=== PATIENT | female | born 1955 | race Caucasian/White ===

== ENCOUNTER 2018-08-22 09:29 | Inpatient (IN) ==
[2018-08-22] MEDS ORDERED: IOPAMIDOL 100 ML BOTTLE IV ONE (09:30)
[2018-08-22] MEDS ORDERED: VANCOMYCIN 1,000 MG in 0.9 % SODIUM CHLORIDE 250 ML IV ONE (10:08)
--- NOTE | 2018-08-22 10:12 | Emergency Department Note ---
Skin/Abscess/FB HPI - General Chief complaint: Skin/Abscess/Foreign Body Stated complaint: Redness to forehead Time Seen by Provider: 08/22/18 09:54 Source: patient Mode of arrival: ambulatory Limitations: no limitations - History of Present Illness HPI Narrative: 62-year-old female presents with increasing redness and tenderness to the forehead and down to the left eye. Patient states on she woke up with some pain behind her left ears. There is no rash or lesions. On Tuesday night Tuesday morning she noticed some redness to her forehead. Since then the redness has gotten worse and is very tender. Yesterday she went to [facility] and was seen by Dr. Reynolds. They gave her a gram of Rocephin and put her on Keflex 4 times daily. States she has been taking the Keflex as directed. However she woke up this morning and the redness and swelling is worse and now she has redness and swelling around her left eye as well. Positive chills, unknown fever. States last night she woke up in a pool of sweat. States the vision in her left eye is slightly blurry this morning. That is new. No ear drainage however her ears externally are very tender to palpation. Her ears also appear a little bit red according to patient. Back on she had some neck pain and stiffness which she thought was from driving in the car. That seems to have proved but now she has all this redness and swelling to her forehead and left eye. No recent cough or cold symptoms. No sinus drainage or postnasal drip. - Related Data Home Medications Medication Instructions Recorded Confirmed Losartan [Cozaar] 0 mg PO DAILY 03/29/16 08/22/18 Sertraline [Zoloft] 0 mg PO DAILY 03/29/16 08/22/18 atorvastatin 10 mg tablet 10 mg PO QDAY 08/21/18 08/22/18 Previous Rx's Medication Instructions Recorded cephalexin 500 mg capsule 500 mg PO QID 10 Days #40 cap 08/21/18 ondansetron HCl 8 mg tablet 8 mg PO Q8H PRN #10 tab 08/21/18 Allergies Allergy/AdvReac Type Severity Reaction Status Date / Time No Known Drug Allergies Allergy Unverified 08/21/18 10:19 Review of Systems All systems ED: reviewed and negative except as stated. Past Medical History - Past Medical History [facility] Narrative: Medical History (Last Reviewed 08/21/18 @ 13:59 by Hollie Reynolds DO) Ankle sprain and strain (Acute) Medical history: Reports: hyperlipidemia, hypertension - Social History smoking status: Never smoker Alcohol use: Reports: None Drug use: Reports: none Physical Exam Limitations: no limitations General appearance: alert, in no apparent distress Head: other (Center of the forehead and worse in the left forehead with significant redness and swelling that is tender to palpation. Cap refill immediate. Redness to the left lower and upper eyelid however the upper eyelid is worse. Please see visual acuity.) Eye: Present: PERRL, EOMI, periorbital tenderness (To left eye). Absent: conjunctival injection, nystagmus ENT: normal oropharynx, mucous membranes moist, other (External ears bilaterally with redness and mild edema. The canals with mild injection. TMs are pearly garcía with positive light reflex) Neck: Present: normal inspection, trachea midline, lymphadenopathy (Positive cervical and submental adenopathy). Absent: tenderness Chest: Present: symmetric chest wall rise Respiratory: Present: normal lung sounds bilaterally. Absent: respiratory distress, rales/crackles, accessory muscle use Cardiovascular: Present: regular rate, normal heart sounds Neurological: Present: alert, oriented X3 Psychiatric: Present: normal affect, normal mood Skin: Present: warm, dry, intact, normal color, erythema (Please see had an ENT assessment) Course Course Narrative: At 1130 I did speak with ENT production support specialist, Dr. Campbell. He suggested we start some Unasyn and contact ophthalmology. We do have a call into Dr. Molina he will be in to see the patient. @1205 Dr. Molina here examining pt. discussed with Dr. Molina. He feels that her eyesight and eyes themselves are okay that this is localized tissue swelling and cellulitis to the head and around the eye but not primarily coming from a periorbital cellulitis. He does not see any actual eye abnormalities. Please see Dr. Molina's note. At 1400 I did speak with Dr. Baumann with infectious disease. He would like to come see the patient but will not be here for a few hours due to being busy in the office. He would suggest that we start the patient on some vancomycin and Zosyn. Also suggest that we talk to the hospitalist about admit as long as we have ophthalmology to consult as needed. Dr. Molina did say he would see the patient as needed At 1410 I did speak with the hospitalist, Dr. Sterling who is going to come evaluate the patient. Vital Signs Temperature 98.8 F 08/22/18 09:30 Pulse Rate 75 08/22/18 09:30 Respiratory Rate 18 08/22/18 09:30 Blood Pressure 112/67 08/22/18 09:30 Pulse Oximetry (%) 95 08/22/18 09:30 Temperature 98.8 F 08/22/18 14:42 Pulse Rate 64 08/22/18 14:42 Respiratory Rate 20 08/22/18 14:42 Blood Pressure 112/67 08/22/18 14:42 Pulse Oximetry (%) 99 08/22/18 14:42 Skin/Abscess/Foreign Body - Lab Data Lab results reviewed: Yes I reviewed the patient's lab results. Result diagrams: 08/22/18 10:32 08/22/18 10:32 Lab Results 08/22/18 08/22/18 08/22/18 Range/Units 10:32 10:32 10:32 WBC 9.1 (4.5-11.0) K/mcL RBC 4.14 (4.00-5.20) M/mcL Hgb 11.9 L (12.0-15.0) g/dL Hct 35.7 L (36.0-48.0) % POC Hct 36.0 (36.0-48.0) % MCV 86.1 (80.0-100.0) fL MCH 28.7 (26.0-34.0) pg MCHC 33.4 (31.0-36.0) g/dL RDW 13.5 (11.5-14.5) % Plt Count 281 (140-440) K/mcL MPV 7.7 (7.4-10.4) fL Gran % 80.2 H (38.0-78.0) % Lymph % (Auto) 12.2 L (15.5-49.0) % [place] % (Auto) 6.3 (1.0-12.0) % Eos % (Auto) 1.1 (0.0-7.0) % Baso % (Auto) 0.2 (0.0-2.0) % Gran # 7.3 (1.8-8.0) K/mcL Lymph # (Auto) 1.1 L (1.5-4.8) K/mcL [place] # (Auto) 0.6 (0.1-0.9) K/mcL Eos # (Auto) 0.1 (0.0-0.7) K/mcL Baso # (Auto) 0 (0.0-0.3) K/mcL VBG Lactic Acid (0.5-2.0) mmol/L POC Sodium 135 (133-145) mmol/L Sodium 134 (133-145) mmol/L POC Potassium 3.4 (3.3-5.1) mmol/L Potassium 3.6 (3.3-5.1) mmol/L POC Chloride 96 (96-108) mmol/L Chloride 94 L (96-108) mmol/L Carbon Dioxide 25 (22-30) mmol/L POC Total CO2 26 (22-30) mmol/L Anion Gap 15.0 (8-16) POC BUN 13 (8-23) mg/dl BUN 13 (8-23) mg/dl Creatinine 1.0 (0.6-1.1) mg/dl POC Creatinine 1.0 (0.6-1.1) mg/dl GFR Calculation 61 Glucose 143 H (70-105) mg/dL POC Glucose 140 H (70-105) mg/dL Calcium 9.2 (8.6-10.4) mg/dl POC WB Ioniz Calcium 1.13 L (1.16-1.32) mmol/L Total Bilirubin 0.5 (0.0-1.0) mg/dL AST 21 (0-37) U/l ALT 20 (0-40) U/l Alkaline Phosphatase 109 (39-117) U/L C-Reactive Protein (0.0-0.8) mg/dl Total Protein 7.4 (5.9-8.4) gm/dL Albumin 3.9 (3.2-5.2) gm/dL Globulin 3.5 (2.2-3.7) gm/dL Albumin/Globulin Ratio 1.1 (1.0-2.3) 11/13/18 11/13/18 Range/Units 10:32 11:22 WBC (4.5-11.0) K/mcL RBC (4.00-5.20) M/mcL Hgb (12.0-15.0) g/dL Hct (36.0-48.0) % POC Hct (36.0-48.0) % MCV (80.0-100.0) fL MCH (26.0-34.0) pg MCHC (31.0-36.0) g/dL RDW (11.5-14.5) % Plt Count (140-440) K/mcL MPV (7.4-10.4) fL Gran % (38.0-78.0) % Lymph % (Auto) (15.5-49.0) % [place] % (Auto) (1.0-12.0) % Eos % (Auto) (0.0-7.0) % Baso % (Auto) (0.0-2.0) % Gran # (1.8-8.0) K/mcL Lymph # (Auto) (1.5-4.8) K/mcL [place] # (Auto) (0.1-0.9) K/mcL Eos # (Auto) (0.0-0.7) K/mcL Baso # (Auto) (0.0-0.3) K/mcL VBG Lactic Acid 1.1 (0.5-2.0) mmol/L POC Sodium (133-145) mmol/L Sodium (133-145) mmol/L POC Potassium (3.3-5.1) mmol/L Potassium (3.3-5.1) mmol/L POC Chloride (96-108) mmol/L Chloride (96-108) mmol/L Carbon Dioxide (22-30) mmol/L POC Total CO2 (22-30) mmol/L Anion Gap (8-16) POC BUN (8-23) mg/dl BUN (8-23) mg/dl Creatinine (0.6-1.1) mg/dl POC Creatinine (0.6-1.1) mg/dl GFR Calculation Glucose (70-105) mg/dL POC Glucose (70-105) mg/dL Calcium (8.6-10.4) mg/dl POC WB Ioniz Calcium (1.16-1.32) mmol/L Total Bilirubin (0.0-1.0) mg/dL AST (0-37) U/l ALT (0-40) U/l Alkaline Phosphatase (39-117) U/L C-Reactive Protein 20.6 H (0.0-0.8) mg/dl Total Protein (5.9-8.4) gm/dL Albumin (3.2-5.2) gm/dL Globulin (2.2-3.7) gm/dL Albumin/Globulin Ratio (1.0-2.3) - Radiology Data Radiology results reviewed: Yes I reviewed the patient's radiology results. Disposition Pt seen by MANAGER UNION/PA only: No Clinical Impression: Cellulitis, face Disposition: Xfer As Inpt ([facility]) Condition: Fair Instructions: Cellulitis (ED) Referrals: Elaine Vieyra MD [Primary Care Provider] - Erick Molina MD [Physician] - Macho Baumann MD [Physician] - Michell Campbell DO [Physician] - Time of Disposition: 15:06
[2018-08-22] MEDS ORDERED: diphenhydrAMINE 25 MG CAPSULE PO ONE (10:42)
--- NOTE | 2018-08-22 11:14 | Cat Scan Report ---
CLINICAL INFORMATION: Periorbital cellulitis TECHNIQUE: Axial images through the facial bones. 70 mL contrast material injected. Sagittal and coronally reformatted images COMPARISON: None. FINDINGS: There is preseptal soft tissue swelling consistent with bilateral periorbital cellulitis. No discrete fluid collection or solid mass. No postseptal abnormality. The globes appear normal bilaterally. No intraorbital abnormality. Extraocular musculature is normal. Intraorbital fat is normal. Frontal, ethmoid, maxillary sinuses are negative. There is no bone destruction. No evidence for sinusitis. Nasal bones are negative. Maxilla is negative. Landscape Contractor spaces are negative bilaterally. Submandibular glands and parotid glands are negative. No pathologic cervical lymphadenopathy. No intracranial abnormality. No epidural fluid. No intracranial enhancement. IMPRESSION: 1. Periorbital, preseptal cellulitis 2. No focal abscess. No postseptal abnormality. The globes and orbits appear normal 3. Negative paranasal sinuses. Interpreted and Authenticated by: Darwin Olivo 08/22/18
[2018-08-22 11:59] LABS: Basophils # (Auto) 0 K/mcL (0.0-0.3); Basophils % (Auto) 0.2 % (0.0-2.0); Eosinophils # (Auto) 0.1 K/mcL (0.0-0.7); Eosinophils % (Auto) 1.1 % (0.0-7.0); Granulocytes % (Auto) 80.2 % (38.0-78.0); Lymphocytes # (Auto) 1.1 K/mcL (1.5-4.8); Lymphocytes % (Auto) 12.2 % (15.5-49.0); Mean Cell Volume 86.1 fL (80.0-100.0); Mean Corpuscular HGB Conc 33.4 g/dL (31.0-36.0); Mean Corpuscular Hemoglobin 28.7 pg (26.0-34.0); Monocytes # (Auto) 0.6 K/mcL (0.1-0.9); Monocytes % (Auto) 6.3 % (1.0-12.0); Platelet Count 281 K/mcL (140-440); RBC 4.14 M/mcL (4.00-5.20); Red Cell Distribution Width 13.5 % (11.5-14.5)
[2018-08-22 12:07] LABS: ALT/SGPT 20 U/l (0-40); Albumin 3.9 gm/dL (3.2-5.2); Albumin/Globulin Ratio 1.1 (1.0-2.3); Alkaline Phosphatase 109 U/L (39-117); Blood Urea Nitrogen 13 mg/dl (8-23)
--- NOTE | 2018-08-22 14:51 | Internal Med History&Physical ---
Medical - H&P: HPI Patient information: Note initiated : 08/22/18 at 2:40 pm Service Date, if different from initiated Date: [] Patient: Tamiko Joyce a 62 y/o F admitted on for Redness to forehead. Chief Complaint: [] History of present illness: Ms. Joyce is a 62 year old F who presents the ER with facial redness and swelling and tenderness. Patient states on she noticed she had a 6 neck was a little bit sore and stiff the same to continue through Tuesday. And then on Tuesday she started to feel worse started to develop redness on her forehead and she felt feverish and chilled. On Tuesday her redness of her forehead started to expand and become more swollen and tender to the touch and extended to her left ear and a small portion of her left cheek as well. Her neck stiffness has improved. On Tuesday she went to urgent care clinic and received an IM injection of Rocephin was given a prescription for Keflex she went home and took several doses of her Keflex at night the next day her swelling appeared to be worse and that it involved the left eyelid with some associated blurry vision. And thus she went to the ER. She denies any trauma scratches or bug bites that she is aware of. No hearing loss, no ear drainage, no sinus drainage pressure. No oral lesions. There is no pruritus. No recent illnesses. She did have an episode of nausea and vomiting A CT of the head was done which was concerning for periorbital cellulitis. ENT Dr. Campbell was contacted from the ER who recommended ophthalmology evaluation. Dr. Molina acid plant helper, evaluated the patient and did not feel it was a periorbital cellulitis and that orbital exam was unremarkable and the eye itself was unaffected. Case was also discussed with Dr. Baumann with infectious disease specialist recommended IV Vanco and Zosyn. Per the PA the tympanic membranes look clear. Review of Systems: Positive for facial redness and swelling and tenderness, fevers, chills, nausea , vomiting. denies headache/fever/chills/chest or abdominal pain/cough/dyspnea/ diarrhea. Remaining 10 point review of systems reviewed negative Medical - H&P: PMH Medical history: Medical History (Last Reviewed 08/21/18 @ 13:59 by Hollie Reynolds DO) Hypertension Hyperlipidemia Depression Surgical history: Cholecystectomy Family history Mother had diabetes and stroke Father had CVA Social history: patient quit smoking 15 years ago drinks alcohol rarely lives at home with her Medical - H&P: Meds Home Medications Medication Instructions Recorded Confirmed Type Losartan [Cozaar] 0 mg PO DAILY 03/29/16 08/22/18 History Sertraline [Zoloft] 0 mg PO DAILY 03/29/16 08/22/18 History atorvastatin 10 mg tablet 10 mg PO QDAY 08/21/18 08/22/18 History cephalexin 500 mg capsule 500 mg PO QID 10 Days #40 cap 08/21/18 08/22/18 Rx ondansetron HCl 8 mg tablet 8 mg PO Q8H PRN #10 tab 08/21/18 08/22/18 Rx Allergies Allergy/AdvReac Type Severity Reaction Status Date / Time No Known Drug Allergies Allergy Unverified 08/21/18 10:19 Medical - H&P: Exam - Constitutional Vitals: Temp Pulse Resp BP Pulse Ox 98.8 F 64 20 99/57 99 08/22/18 14:37 08/22/18 14:37 08/22/18 14:37 08/22/18 14:37 08/22/18 14:37 Exam: General: Alert, Awake, No acute Distress HEENT: Homogenous erythema over the forehead with swelling of tissue and tenderness to palpation, erythema over the left eyelid a several centimeter circular area over the left cheek as well as erythema and tenderness to the left ear specifically the helix and a auricular tubercle, lobule of auricle unaffected, no pain on pulling down on the lobule. EOMI, pupils equal round reactive to light, CV: RRR, No murmurs, normal s1/s2 Pulm: Clear b/l, no wheezing/rhonchi/rales Abd: soft, nontender, +BS x4 Ext: no clubbing/cyanosis/edema Neuro: Alert, no focal deficits, moves all extremities Skin: warm/dry Medical - H&P: Reslt - Labs CBC & Chem 7: 08/22/18 10:32 08/22/18 10:32 Labs: Short CBC 08/22/18 Range/Units 10:32 WBC 9.1 (4.5-11.0) K/mcL Hgb 11.9 L (12.0-15.0) g/dL Hct 35.7 L (36.0-48.0) % Plt Count 281 (140-440) K/mcL BMP 08/22/18 10:32 Sodium 134 Potassium 3.6 Chloride 94 L Carbon Dioxide 25 BUN 13 Creatinine 1.0 Glucose 143 H Calcium 9.2 Liver Function 08/22/18 Range/Units 10:32 Total Bilirubin 0.5 (0.0-1.0) mg/dL AST 21 (0-37) U/l ALT 20 (0-40) U/l Alkaline Phosphatase 109 (39-117) U/L Albumin 3.9 (3.2-5.2) gm/dL - Imaging and Cardiology CT scan - head Additional comments: facial CT showing cellulitis Medical - H&P: A/P - Narrative A/P Narrative: A: *Cellulitis, forehead & left eyelid/cheek/ear: Failed outpatient treatment * *Hypertension *Depression * P: -IV Vanco/Zosyn -ID consult -Seen by ophthalmology -Check ESR/CRP - - -ppx: lovenox
[2018-08-22] MEDS ORDERED: PIPERACILLIN SODIUM/TAZOBACTAM 3.375 GM in DEXTROSE 5% IN WATER 50 ML IV SCH (15:00)
[2018-08-22] MEDS ORDERED: HYDROcodone/APAP 5/325MG TABLET PO PRN (15:56)
[2018-08-22] MEDS ORDERED: PROMETHAZINE 25 MG TABLET PO PRN (15:56)
[2018-08-22] MEDS ORDERED: VANCOMYCIN PER PHARMACY IV SCH (15:56)
[2018-08-22] MEDS ORDERED: ACETAMINOPHEN 325 MG TABLET PO PRN (15:56)
[2018-08-22] MEDS ORDERED: ONDANSETRON 4 MG/2 ML VIAL IV PRN (15:56)
[2018-08-22] MEDS: 0.9 % SODIUM CHLORIDE 1,000 ML IV SCH (16:10)
[2018-08-22] MEDS: PIPERACILLIN SODIUM/TAZOBACTAM 3.375 GM in DEXTROSE 5% IN WATER 50 ML IV SCH ×2 (17:00→23:31)
[2018-08-22 17:02] LABS: Eosinophils % (Manual) 1 % (0-7); Lymphocytes % 8 % (15-49); Monocytes % (Manual) 10 % (1-12); Platelet Estimate NORMAL (NORMAL); RBC Morphology NORMAL (NORMAL); Segmented Neutrophils % 81 % (38-78)
[2018-08-22] MEDS ORDERED: diphenhydrAMINE 50 MG/ML VIAL IV ONE (18:52)
[2018-08-22] MEDS ORDERED: diphenhydrAMINE 50 MG/ML VIAL ONE (19:04)
--- NOTE | 2018-08-22 20:12 | Infectious Disease Consult ---
History of Present Illness Patient information: Note initiated : 08/22/18 at 7:59 pm Service Date, if different from initiated Date: [] Patient: Tamiko Joyce 62 y/o F admitted on 08/22/18 for Redness to forehead. Chief Complaint: [] Requesting Physician: Roger Sterling Reason for Consult: facial cellulitis Chief complaint: my forehead, eyelid hurt History of present illness: 62 year old lady was admitted today after presenting to ER with redness, swelling and pain over forehead, lt eye and lt ear. It all started last week around when pt noticed soreness of area behind the left ear and stiffness of neck. It subseq progressed with involvement of her left cheek, forehead and then left eye lid. She endorsed subjective fevers, occasional chills in last few days. She also had headaches since which got better in last 2 days and currently does nt have any headache. She also endorsed nausea with vomiting which subseq better on its own. Pt went to urgent care clinic yesterday for these complaints and received an IM injection of Rocephin, oral Keflex but since her forehead swelling and lt eye swelling continue to get worse because of which pt came back to ER. ROS neg for any vision impairment, oral lesions, chest pain, cough, problems swallowing, neck stiffness, n/v, trauma, scratch bites. Pt's VS have been normal at am. A CT of the head was done which was concerning for periorbital cellulitis. ENT Dr. Campbell was contacted from the ER who recommended ophthalmology evaluation. Dr. Molina structural steel worker apprentice, evaluated the patient and did not feel it was a periorbital cellulitis and that orbital exam was unremarkable and the eye itself was unaffected. Review of Systems All systems PM: reviewed and no additional remarkable complaints except as stated Past History Past medical history: HTN HLD OA Past family history: lives with her in [facility] [place] Past social history: doesnot smoke currently, prev smoker [quit 15 years ago] Medications and Allergies Home Medications Medication Instructions Recorded Confirmed Type Losartan [Cozaar] 100 mg PO DAILY 03/29/16 08/22/18 History Sertraline [Zoloft] 50 mg PO QHS 03/29/16 08/22/18 History atorvastatin 10 mg tablet 10 mg PO QDAY 08/21/18 08/22/18 History cephalexin 500 mg capsule 500 mg PO QID 10 Days #40 cap 08/21/18 08/22/18 Rx ondansetron HCl 8 mg tablet 8 mg PO Q8H PRN #10 tab 08/21/18 08/22/18 Rx Allergies Allergy/AdvReac Type Severity Reaction Status Date / Time No Known Drug Allergies Allergy Unverified 08/21/18 10:19 Physical Examination Vital signs: Temp Pulse Resp BP Pulse Ox 36.8 C 72 16 115/65 94 08/22/18 15:56 08/22/18 15:56 08/22/18 15:56 08/22/18 15:56 08/22/18 15:56 General appearance: no acute distress Eyes pulmonary: nonicteric Neck: no lymphadenopathy Auscultation: bilateral: clear Cardiovascular: regular rate and rhythm Gastrointestinal: normoactive bowel sounds, non-tender Extremities: no cyanosis, no edema Musculoskeletal: ROM normal normal mental status, motor strength normal and symmetric, other (negative Kernig's sign, no neck stiffness) Face: marked redness, swelling and tenderness of forehead, no lesions Lt eye: swollen, red, tender to touch. Eye movements normal and without any pain Lt ear: swelling, redness and tenderness inv pinna and auricle. no lesions in the EAM Results - Laboratory Findings CBC and BMP: 08/23/18 04:20 08/23/18 04:20 Abnormal lab findings: Abnormal Labs 08/22/18 08/22/18 08/22/18 10:32 10:32 10:32 Hgb 11.9 L Hct 35.7 L Gran % 80.2 H Lymph % (Auto) 12.2 L Lymph # (Auto) 1.1 L Seg Neutrophils % Lymphocytes % ESR Chloride 94 L Glucose 143 H POC Glucose 140 H POC WB Ioniz Calcium 1.13 L C-Reactive Protein 08/22/18 08/22/18 08/22/18 10:32 11:22 11:22 Hgb Hct Gran % Lymph % (Auto) Lymph # (Auto) Seg Neutrophils % 81 H Lymphocytes % 8 L ESR 93 H Chloride Glucose POC Glucose POC WB Ioniz Calcium C-Reactive Protein 20.6 H Assessment and Plan - Narrative A/P Narrative: A: 1. Cellulitis involving forehead, lt ear, left side of face and left eye ( preseptal): - given lack of pain on eye movements, orbital cellulitis is unlikely - unsure of exact etiology: insect bite, MRSA or Streptococcal infection might be responsible 2. No concerns for sepsis Recommendations: - Continue IV Vanc (with pharmacy assisted dosing) and IV Zosyn 3.375 gm q6 hr - Consider MRI head and neck without contrast for better delineation of extent of involvement - Pt counselled about symptoms to watch for such as diplopia, visual impairment , pain with eye movements; which might signify complications (cavernous sinus thrombosis, orbital cellulitis) - will follow Macho Baumann MD Infectious diseases
[2018-08-22] MEDS: 0.9 % SODIUM CHLORIDE 10 ML SYRINGE IV SCH (20:19)
[2018-08-22] MEDS: VANCOMYCIN 1,000 MG in 0.9 % SODIUM CHLORIDE 250 ML IV SCH (20:55)
[2018-08-23] MEDS ORDERED: diphenhydrAMINE 25 MG CAPSULE PO PRN (01:00)
[2018-08-23] MEDS: 0.9 % SODIUM CHLORIDE 10 ML SYRINGE IV SCH ×3 (05:50→21:18)
[2018-08-23] MEDS: PIPERACILLIN SODIUM/TAZOBACTAM 3.375 GM in DEXTROSE 5% IN WATER 50 ML IV SCH ×3 (06:00→17:45)
[2018-08-23] MEDS ORDERED: 0.9 % SODIUM CHLORIDE 250 ML IV ONE (06:10)
--- NOTE | 2018-08-23 06:44 | Internal Med Progress Note ---
Medical - PN: Subj Patient information: Note initiated : 08/23/18 at 6:40 am Service Date, if different from initiated Date: [] Patient: Tamiko Joyce a 62 y/o F admitted on 08/22/18 for Redness to forehead. Chief Complaint: [] Interval history: Ms. Joyce is a 62 year old F who presents the ER with facial redness and swelling and tenderness. Patient states on she noticed she had a 6 neck was a little bit sore and stiff the same to continue through Tuesday. And then on Tuesday she started to feel worse started to develop redness on her forehead and she felt feverish and chilled. On Tuesday her redness of her forehead started to expand and become more swollen and tender to the touch and extended to her left ear and a small portion of her left cheek as well. Her neck stiffness has improved. On Tuesday she went to urgent care clinic and received an IM injection of Rocephin was given a prescription for Keflex she went home and took several doses of her Keflex at night the next day her swelling appeared to be worse and that it involved the left eyelid with some associated blurry vision. And thus she went to the ER. She denies any trauma scratches or bug bites that she is aware of. No hearing loss, no ear drainage, no sinus drainage pressure. No oral lesions. There is no pruritus. No recent illnesses. She did have an episode of nausea and vomiting A CT of the head was done which was concerning for periorbital cellulitis. ENT Dr. Campbell was contacted from the ER who recommended ophthalmology evaluation. Dr. Molina lawn sprinkler installer, evaluated the patient and did not feel it was a periorbital cellulitis and that orbital exam was unremarkable and the eye itself was unaffected. Case was also discussed with Dr. Baumann with infectious disease specialist recommended IV Vanco and Zosyn. Per the PA the tympanic membranes look clear. 08/23 Feeling better this morning. Her face is not as swollen does not feel as tight or is tender. She does have a mild headache but otherwise no new complaints. Review of Systems: Facial redness and swelling and tenderness which is improved , headache. denies fever/chills/nausea/vomiting/chest or abdominal pain/cough/dyspnea/diarrhea. Otherwise see above. - Constitutional Vitals: Vital Signs Temp Pulse Resp BP Pulse Ox 99.7 F H 60 16 111/63 95 08/23/18 05:22 08/23/18 06:03 08/23/18 06:03 08/23/18 06:03 08/23/18 06:03 Period Temp Pulse Resp BP Sys/Mtz Pulse Ox Last 24 Hr 97.5 F-99.7 F 60-75 16-20 81-129/47-83 94-99 Intake and Output 08/22/18 08/23/18 08/23/18 21:59 05:59 13:59 Intake Total 850 / 850 1200 / 1200 Output Total 900 / 900 425 / 425 Balance -50 / -50 775 / 775 Weight 81.873 kg Intake & Output: Intake & Output 08/22/18 08/23/18 08/23/18 21:59 05:59 13:59 Intake Total 850 / 850 1200 / 1200 Output Total 900 / 900 425 / 425 Balance -50 / -50 775 / 775 Weight 81.873 kg Intake: IV 50 / 50 1050 / 1050 Sodium Chloride 0.9% 1,000 ml @ 1000 / 1000 200 mls/hr IV .Q5H [facility] Rx#: [id number] Zosyn 3.375 gm In Dextrose 5% 50 / 50 50 / 50 in Water 50 ml @ 100 mls/hr IV Q6H [facility] Rx#:[id number] Oral 800 / 800 150 / 150 Output: Void Amount 900 / 900 425 / 425 Other: Urine Appearance Clear Clear Urine Color Pale Bright Yellow Urine Odor Normal Normal # Voids 1 Exam: General: Alert, Awake, No acute Distress HEENT: Homogenous erythema over the forehead with swelling of tissue and tenderness to palpation, erythema over the left eyelid a several centimeter circular area over the left cheek as well as erythema and tenderness to the left ear specifically the helix and a auricular tubercle, lobule of auricle unaffected, no pain on pulling down on the lobule - swelling/tenderness improved today. EOMI, pupils equal round reactive to light, CV: RRR, No murmurs, normal s1/s2 Pulm: Clear b/l, no wheezing/rhonchi/rales Abd: soft, nontender, +BS x4 Ext: no clubbing/cyanosis/edema Neuro: Alert, no focal deficits, moves all extremities Skin: warm/dry Medical - PN: Obj Da - Labs CBC & Chem 7: 08/23/18 04:20 08/22/18 10:32 Labs: Abnormal Lab Results 08/22/18 08/22/18 08/22/18 11:22 11:22 10:32 Hgb Hct Gran % Lymph % (Auto) Lymph # (Auto) Seg Neutrophils % 81 H Lymphocytes % 8 L ESR 93 H Chloride Glucose POC Glucose POC WB Ioniz Calcium C-Reactive Protein 20.6 H 08/22/18 08/22/18 08/22/18 10:32 10:32 10:32 Hgb 11.9 L Hct 35.7 L Gran % 80.2 H Lymph % (Auto) 12.2 L Lymph # (Auto) 1.1 L Seg Neutrophils % Lymphocytes % ESR Chloride 94 L Glucose 143 H POC Glucose 140 H POC WB Ioniz Calcium 1.13 L C-Reactive Protein Meds: Medications Acetaminophen (Tylenol) 650 mg PO Q6HP PRN PRN Reason: PAIN/FEVER > 101 Hydrocodone Bitart/Acetaminophen ([place] 5/325mg) 1 tab PO Q4HP PRN PRN Reason: PAIN LEVEL 3-6 Atorvastatin Calcium (Lipitor) 10 mg PO DAILY [facility] Diphenhydramine HCl (Benadryl) 25 mg PO Q6HP PRN PRN Reason: Allergic Symptoms Enoxaparin Sodium (Lovenox) 40 mg SQ DAILY [facility] Piperacillin Sod/Tazobactam (Sod 3.375 gm/ Dextrose) 50 mls @ 100 mls/hr IV Q6H [facility] Last Admin: 08/23/18 06:00 Dose: 100 mls/hr Sodium Chloride (Sodium Chloride 0.9%) 1,000 mls @ 200 mls/hr IV .Q5H [facility] Last Infusion: 08/23/18 00:25 Dose: Infused Vancomycin HCl 1,000 mg/ (Sodium Chloride) 250 mls @ 250 mls/hr IV Q12H [facility] Last Admin: 08/22/18 20:55 Dose: 250 mls/hr Sodium Chloride (Sodium Chloride 0.9%) 250 mls @ 0 mls/hr IV BOLUS ONE Stop: 08/23/18 06:11 Last Admin: 08/23/18 06:20 Dose: 999 mls/hr Losartan Potassium (Cozaar) 25 mg PO DAILY [facility] Ondansetron HCl (Zofran) 4 mg IV Q4HP PRN PRN Reason: Nausea And Vomiting Promethazine HCl (Phenergan) 12.5 mg PO Q6HP PRN PRN Reason: Nausea And Vomiting Sertraline HCl (Zoloft) 25 mg PO DAILY [facility] Sodium Chloride (Saline Flush) 10 ml IV Q8 [facility] Last Admin: 08/23/18 05:50 Dose: 10 ml Vancomycin HCl (Vancomycin Per Pharmacy) 1 order IV UD [facility] Medical - PN: A/P - Time Spent With Patient Total time spent is greater than 50% in coordination of care (as documented) at patient's floor/unit and/or counseling patient: - Narrative A/P Narrative: A: *Cellulitis, forehead & left eyelid/cheek/ear: Failed outpatient treatment -improving *Hypertension: *Depression * P: -IV Vanco/Zosyn -ID consult -Seen by ophthalmology; no periorbital cellulitis suspected -MRI brain/neck pending -Check ESR/CRP -hold ARB for low BP - -ppx: lovenox Medical - PN: Qual - Stroke Symptom Onset Unknown: No - VTE Deep Vein Thrombosis/Pulmonary Embolism Present on Admission: No
[2018-08-23 06:51] LABS: Basophils # (Auto) 0 K/mcL (0.0-0.3); Basophils % (Auto) 0.5 % (0.0-2.0); Eosinophils # (Auto) 0.2 K/mcL (0.0-0.7); Eosinophils % (Auto) 2.7 % (0.0-7.0); Granulocytes % (Auto) 70.4 % (38.0-78.0); Lymphocytes # (Auto) 1.2 K/mcL (1.5-4.8); Mean Cell Volume 86.5 fL (80.0-100.0); Mean Corpuscular HGB Conc 33.5 g/dL (31.0-36.0); Monocytes # (Auto) 0.5 K/mcL (0.1-0.9); Monocytes % (Auto) 7.4 % (1.0-12.0); Platelet Count 249 K/mcL (140-440); RBC 3.69 M/mcL (4.00-5.20); Red Cell Distribution Width 13.6 % (11.5-14.5)
[2018-08-23 07:30] LABS: ALT/SGPT 16 U/l (0-40); Albumin 3.5 gm/dL (3.2-5.2); Albumin/Globulin Ratio 1.2 (1.0-2.3); Alkaline Phosphatase 88 U/L (39-117); Bilirubin,Direct < 0.2 mg/dL (0.0-0.3); Blood Urea Nitrogen 11 mg/dl (8-23); C-Reactive Protein 10.9 mg/dl (0.0-0.8); Gamma Glutamyl Transpeptidase 30 U/L (5-36); Uric Acid 4.6 mg/dL (2.5-8.0)
--- NOTE | 2018-08-23 08:40 | Emergency Department Note ---
ED Note Addendum Note Addendum: agree with diagnosis and treatment
[2018-08-23] MEDS ORDERED: LOSARTAN 25 MG TABLET PO SCH (09:00)
[2018-08-23] MEDS: ATORVASTATIN 20 MG TABLET PO SCH (09:27)
[2018-08-23] MEDS: ENOXAPARIN 40 MG/0.4 ML SYRINGE SQ SCH (09:27)
[2018-08-23] MEDS: SERTRALINE 50 MG TABLET PO SCH (09:27)
[2018-08-23] MEDS: VANCOMYCIN 1,000 MG in 0.9 % SODIUM CHLORIDE 250 ML IV SCH ×2 (09:47→21:18)
--- NOTE | 2018-08-23 10:57 | Discharge Summary ---
Medical - DS: Prov Patient information: Note initiated : 08/23/18 at 10:55 am Service Date, if different from initiated Date: [] Patient: Tamiko Joyce a 62 y/o F admitted on 08/22/18 for Redness to forehead. Chief Complaint: [] Date of admission: 08/22/18 15:09 Discharge date: 08/24/18 Primary care physician: Elaine Vieyra Consults: 08/22/18 11:24 Consult to Physician [CONS] Stat Comment: Consulting Provider: Michell Campbell Reason For Exam: Physician to Consult 08/22/18 11:49 Consult to Physician [CONS] Stat Comment: Consulting Provider: Erick Molina Reason For Exam: Physician to Consult 08/22/18 13:41 Consult to Physician [CONS] Stat Comment: Consulting Provider: Macho Baumann Reason For Exam: Physician to Consult 08/22/18 14:02 Consult to Physician [CONS] Stat Comment: Consulting Provider: Roger Sterling Reason For Exam: Physician to Consult Medical - DS: Meds - Discharge Medications Prescriptions: Ciprofloxacin HCl [Cipro] 750 mg PO DAILY #5 tab Active and Home Medications: Home Medications Losartan [Cozaar] 100 mg PO DAILY 03/29/16 [History Confirmed 08/22/18 Last Taken 08/21/18] Sertraline [Zoloft] 50 mg PO QHS 03/29/16 [History Confirmed 08/22/18 Last Taken 08/21/18] atorvastatin 10 mg tablet 10 mg PO QDAY 08/21/18 [History Confirmed 08/22/18 Last Taken 08/21/18] cephalexin 500 mg capsule 500 mg PO QID 10 Days #40 cap 08/21/18 [Rx Confirmed 08/22/18 Last Taken 08/22/18] ondansetron HCl 8 mg tablet 8 mg PO Q8H PRN #10 tab 08/21/18 [Rx Confirmed 08/22 Last Taken 08/21/18] Medical - DS: Hosp Hospital course: Ms. Joyce is a 62 year old F who presents the ER with facial redness and swelling and tenderness. Patient states on she noticed she had a 6 neck was a little bit sore and stiff the same to continue through Tuesday. And then on Tuesday she started to feel worse started to develop redness on her forehead and she felt feverish and chilled. On Tuesday her redness of her forehead started to expand and become more swollen and tender to the touch and extended to her left ear and a small portion of her left cheek as well. Her neck stiffness has improved. On Tuesday she went to urgent care clinic and received an IM injection of Rocephin was given a prescription for Keflex she went home and took several doses of her Keflex at night the next day her swelling appeared to be worse and that it involved the left eyelid with some associated blurry vision. And thus she went to the ER. She denies any trauma scratches or bug bites that she is aware of. No hearing loss, no ear drainage, no sinus drainage pressure. No oral lesions. There is no pruritus. No recent illnesses. She did have an episode of nausea and vomiting A CT of the head was done which was concerning for periorbital cellulitis. ENT Dr. Campbell was contacted from the ER who recommended ophthalmology evaluation. Dr. Molina logistics and planning manager, evaluated the patient and did not feel it was a periorbital cellulitis and that orbital exam was unremarkable and the eye itself was unaffected. Case was also discussed with Dr. Baumann with infectious disease specialist recommended IV Vanco and Zosyn. Per the PA the tympanic membranes look clear. 08/23 Feeling better this morning. Her face is not as swollen does not feel as tight or is tender. She does have a mild headache but otherwise no new complaints. 08/24 Feeling much better swelling redness is significantly improved. Stable and ready for discharge Discharge diagnosis: Facial cellulitis - Time Spent with Patient Total time spent providing and/or coordinating discharge services: Greater than 30 minutes Medical - DS: Exam - Constitutional Vitals: Vital Signs Temp Pulse Pulse Resp BP BP BP 08/23/18 08:02 98.8 F 60 16 101/52 08/23/18 06:03 60 16 111/63 08/23/18 05:22 99.7 F H 62 16 81/47 08/23/18 03:10 98.3 F 60 16 96/59 08/22/18 23:55 97.8 F 67 16 91/49 08/22/18 19:56 97.5 F 63 16 107/57 08/22/18 15:56 98.2 F 72 16 115/65 08/22/18 15:45 98.2 F 72 16 115/65 08/22/18 15:09 98.8 F 16 99/57 08/22/18 14:42 98.8 F 64 20 112/67 08/22/18 14:37 98.8 F 64 20 99/57 08/22/18 13:10 66 18 101/48 08/22/18 12:23 68 20 129/83 08/22/18 11:39 68 20 118/75 Pulse Ox 08/23/18 08:02 94 08/23/18 06:03 95 08/23/18 05:22 94 08/23/18 03:10 95 08/22/18 23:55 94 08/22/18 19:56 96 08/22/18 15:56 94 08/22/18 15:45 94 08/22/18 15:09 99 08/22/18 14:42 99 08/22/18 14:37 99 08/22/18 13:10 99 08/22/18 12:23 98 08/22/18 11:39 98 Intake and Output 08/22/18 08/23/18 08/23/18 21:59 05:59 13:59 Intake Total 1100 / 1100 1200 / 1200 550 / 550 Output Total 900 / 900 425 / 425 Balance 200 / 200 775 / 775 550 / 550 Intake: IV 300 / 300 1050 / 1050 300 / 300 Sodium Chloride 0.9% 1,000 ml @ 1000 / 1000 200 mls/hr IV .Q5H [facility] Rx#: [id number] Sodium Chloride 0.9% 250 ml @ 250 / 250 Wide Open IV [facility] Rx#: [id number] Zosyn 3.375 gm In Dextrose 5% 50 / 50 50 / 50 50 / 50 in Water 50 ml @ 100 mls/hr IV Q6H [facility] Rx#:[id number] Vancomycin 1,000 mg In Sodium 250 / 250 Chloride 0.9% 250 ml @ 250 mls/ hr IV Q12H [facility] Rx#:[id number] Oral 800 / 800 150 / 150 IV - Manual Only 250 / 250 Output: Void Amount 900 / 900 425 / 425 Other: Urine Appearance Clear Clear Urine Color Pale Bright Yellow Urine Odor Normal Normal # Voids 1 Weight 81.873 kg Medical - DS: Data Labs on day of discharge: Labs from last 24 hours 08/23/18 08/23/18 08/23/18 07:55 04:20 04:20 WBC 6.2 RBC 3.69 L Hgb 10.7 L Hct 31.9 L MCV 86.5 MCH 29.0 MCHC 33.5 RDW 13.6 Plt Count 249 MPV 7.6 Gran % 70.4 Lymph % (Auto) 19.0 [place] % (Auto) 7.4 Eos % (Auto) 2.7 Baso % (Auto) 0.5 Gran # 4.3 Lymph # (Auto) 1.2 L [place] # (Auto) 0.5 Eos # (Auto) 0.2 Baso # (Auto) 0 Total Counted Seg Neutrophils % Band Neutrophils % Lymphocytes % Monocytes % (Manual) Eosinophils % (Manual) Platelet Estimate RBC Morphology ESR VBG Lactic Acid Sodium 138 Potassium 3.8 Chloride 101 Carbon Dioxide 24 Anion Gap 13.0 BUN 11 Creatinine 1.0 GFR Calculation 61 Glucose 95 Uric Acid 4.6 Calcium 8.8 Phosphorus 2.9 Magnesium 2.2 Total Bilirubin 0.3 Direct Bilirubin < 0.2 GGT 30 AST 19 ALT 16 Alkaline Phosphatase 88 Lactate Dehydrogenase 206 C-Reactive Protein 10.9 H Total Protein 6.5 Albumin 3.5 Globulin 3.0 Albumin/Globulin Ratio 1.2 Triglycerides 167 H Vancomycin Trough 13.5 08/22/18 08/22/18 08/22/18 11:22 11:22 10:32 WBC RBC Hgb Hct MCV MCH MCHC RDW Plt Count MPV Gran % Lymph % (Auto) [place] % (Auto) Eos % (Auto) Baso % (Auto) Gran # Lymph # (Auto) [place] # (Auto) Eos # (Auto) Baso # (Auto) Total Counted 100 Seg Neutrophils % 81 H Band Neutrophils % Not Reportable Lymphocytes % 8 L Monocytes % (Manual) 10 Eosinophils % (Manual) 1 Platelet Estimate Normal RBC Morphology Normal ESR 93 H VBG Lactic Acid Sodium Potassium Chloride Carbon Dioxide Anion Gap BUN Creatinine GFR Calculation Glucose Uric Acid Calcium Phosphorus Magnesium Total Bilirubin Direct Bilirubin GGT AST ALT Alkaline Phosphatase Lactate Dehydrogenase C-Reactive Protein 20.6 H Total Protein Albumin Globulin Albumin/Globulin Ratio Triglycerides Vancomycin Trough 08/22/18 08/22/18 08/22/18 10:32 10:32 10:32 WBC 9.1 RBC 4.14 Hgb 11.9 L Hct 35.7 L MCV 86.1 MCH 28.7 MCHC 33.4 RDW 13.5 Plt Count 281 MPV 7.7 Gran % 80.2 H Lymph % (Auto) 12.2 L [place] % (Auto) 6.3 Eos % (Auto) 1.1 Baso % (Auto) 0.2 Gran # 7.3 Lymph # (Auto) 1.1 L [place] # (Auto) 0.6 Eos # (Auto) 0.1 Baso # (Auto) 0 Total Counted Seg Neutrophils % Band Neutrophils % Lymphocytes % Monocytes % (Manual) Eosinophils % (Manual) Platelet Estimate RBC Morphology ESR VBG Lactic Acid 1.1 Sodium 134 Potassium 3.6 Chloride 94 L Carbon Dioxide 25 Anion Gap 15.0 BUN 13 Creatinine 1.0 GFR Calculation 61 Glucose 143 H Uric Acid Calcium 9.2 Phosphorus Magnesium Total Bilirubin 0.5 Direct Bilirubin GGT AST 21 ALT 20 Alkaline Phosphatase 109 Lactate Dehydrogenase C-Reactive Protein Total Protein 7.4 Albumin 3.9 Globulin 3.5 Albumin/Globulin Ratio 1.1 Triglycerides Vancomycin Trough Medical - DS: A/P - Patient/Caregiver Discharge Instructions Activity: increase activity as tolerated Diet: Regular Diet - Follow up Plan Follow up with: Elaine Vieyra MD [Primary Care Provider] - Michell Campbell DO [Physician] - Disposition: Home, Self-Care Prognosis: Fair Rehab Potential: Fair Medical - DS: Qual - VTE Deep Vein Thrombosis/Pulmonary Embolism Present on Admission: No
[2018-08-23] MEDS: 0.9 % SODIUM CHLORIDE 1,000 ML IV SCH ×2 (15:35→15:37)
--- NOTE | 2018-08-23 17:08 | Magnetic Resonance Report ---
CLINICAL INFORMATION: History of cellulitis. COMPARISON: Previous CT scan dated 08/22/2018 TECHNIQUE: Sagittal T1 FLAIR images. Axial DWI, T1 FLAIR, T2 FLAIR, T2, GRE. Coronal T2 FSE. FINDINGS: No restricted diffusion. Cerebral hemispheres are negative. No focal intra-axial signal abnormality. No localized mass effect. No midline shift. Brain volume is normal. No hydrocephalus. Brainstem and cerebellum are negative. No susceptibility. No hemorrhagic abnormality. No extra-axial, intracranial abnormality. Normal flow void within vessels of the base of the brain. Basilar cisterns are normal. Paranasal sinuses are negative. There is mild signal abnormality within left mastoid air cells. IMPRESSION: 1. Negative MRI scan of the brain 2. Mild inflammatory disease within left mastoid air cells. Interpreted and Authenticated by: Darwin Olivo 08/23/18
--- NOTE | 2018-08-23 18:08 | Magnetic Resonance Report ---
CLINICAL INFORMATION: Periorbital cellulitis TECHNIQUE: Axial, coronal, sagittal images through the face and neck. Intravenous contrast material was not administered COMPARISON: CT scan dated 08/22/2018 FINDINGS: There appears to be mild injection of the periorbital fat. Mild preseptal periorbital cellulitis as demonstrated on previous examination. Orbits are negative. Intraorbital fat is normal. The globes are normal bilaterally. Frontal, ethmoid, maxillary, sphenoid sinuses are negative. Normal subcutaneous fat with in the face and neck. No abnormal signal. No fluid collection. Parotid glands and submandibular glands are negative. No prevertebral soft tissue swelling. No solid or cystic soft tissue mass within the neck. Thyroid gland appears normal. There are multiple cervical lymph nodes. These are not enlarged and are considered physiologic. No abnormal lymph node identified. Cervical spine is negative. Cervical spinal cord is unremarkable. No epidural abscess. No evidence for discitis IMPRESSION: 1. Mild edema of the periorbital subcutaneous fat 2. Otherwise negative examination. No focal fluid collection. No other abnormality Interpreted and Authenticated by: Darwin Olivo 08/23/18
--- NOTE | 2018-08-23 21:01 | Infectious Disease Prog Note ---
Subjective Patient information: Note initiated : 08/23/18 at 8:06 pm Service Date, if different from initiated Date: [] Patient: Tamiko Joyce 62 y/o F admitted on 08/22/18 for Redness to forehead. Chief Complaint: [] Interval history: Pt doing better than yesterday. Reports signif improvement in swelling, pain, redness over her face, forehead and ears. Denied any fever, chills, n/v, diarrhea. Shared with her plan to switch to PO antibiotics tomorrow and complete a 10 day course total. Objective Objective Narrative: ao x 3, in nad no thrush the redness over face, forehead, left eye and ear is minimal to none, non tender scalp non tender chest Cta s1 2 normal - Vital Signs Vital signs: Vital Signs Temp Pulse Resp BP BP Pulse Ox 08/23/18 16:00 36.9 C 68 16 116/62 95 08/23/18 12:00 36.6 C 66 16 122/70 95 08/23/18 08:02 37.1 C 60 16 101/52 94 08/23/18 06:03 60 16 111/63 95 08/23/18 05:22 37.6 C H 62 16 81/47 94 08/23/18 03:10 36.8 C 60 16 96/59 95 08/22/18 23:55 36.6 C 67 16 91/49 94 Intake and Output 08/23/18 08/23/18 08/23/18 05:59 13:59 21:59 Intake Total 1200 / 1200 850 / 850 1200 / 1200 Output Total 425 / 425 1800 / 1800 Balance 775 / 775 850 / 850 -600 / -600 Intake: IV 1050 / 1050 600 / 600 Sodium Chloride 0.9% 1,000 ml @ 1000 / 1000 200 mls/hr IV .Q5H [facility] Rx#: [id number] Sodium Chloride 0.9% 250 ml @ 250 / 250 Wide Open IV [facility] Rx#: [id number] Zosyn 3.375 gm In Dextrose 5% 50 / 50 100 / 100 in Water 50 ml @ 100 mls/hr IV Q6H [facility] Rx#:[id number] Vancomycin 1,000 mg In Sodium 250 / 250 Chloride 0.9% 250 ml @ 250 mls/ hr IV Q12H [facility] Rx#:[id number] Oral 150 / 150 1200 / 1200 IV - Manual Only 250 / 250 Output: Void Amount 425 / 425 1800 / 1800 Other: Meal Lunch Percent of Meal Consumed 100% Urine Appearance Clear Urine Color Bright Yellow Urine Odor Normal # Voids 3 Weight 81.873 kg Patient Weight 08/24/18 05:59 Weight 81.873 kg Intake & Output: Intake & Output 08/23/18 08/23/18 08/23/18 05:59 13:59 21:59 Intake Total 1200 / 1200 850 / 850 1200 / 1200 Output Total 425 / 425 1800 / 1800 Balance 775 / 775 850 / 850 -600 / -600 Weight 81.873 kg Intake: IV 1050 / 1050 600 / 600 Sodium Chloride 0.9% 1,000 ml @ 1000 / 1000 200 mls/hr IV .Q5H [facility] Rx#: [id number] Sodium Chloride 0.9% 250 ml @ 250 / 250 Wide Open IV [facility] Rx#: [id number] Zosyn 3.375 gm In Dextrose 5% 50 / 50 100 / 100 in Water 50 ml @ 100 mls/hr IV Q6H [facility] Rx#:[id number] Vancomycin 1,000 mg In Sodium 250 / 250 Chloride 0.9% 250 ml @ 250 mls/ hr IV Q12H [facility] Rx#:[id number] Oral 150 / 150 1200 / 1200 IV - Manual Only 250 / 250 Output: Void Amount 425 / 425 1800 / 1800 Other: Meal Lunch Percent of Meal Consumed 100% Urine Appearance Clear Urine Color Bright Yellow Urine Odor Normal # Voids 3 - Lab 08/23/18 04:20 08/23/18 04:20 Most recent lab results Calcium 8.8 mg/dl (8.6-10.4) 08/23/18 04:20 Phosphorus 2.9 mg/dL (2.7-4.5) 08/23/18 04:20 Magnesium 2.2 mg/dL (1.6-2.5) 08/23/18 04:20 Microbiology 08/22/18 11:51 Blood Blood Culture - Preliminary 08/22/18 11:58 Blood Blood Culture - Preliminary Medications Active Medications: Acetaminophen (Tylenol) 650 mg PO Q6HP PRN PRN Reason: PAIN/FEVER > 101 Hydrocodone Bitart/Acetaminophen ([place] 5/325mg) 1 tab PO Q4HP PRN PRN Reason: PAIN LEVEL 3-6 Atorvastatin Calcium (Lipitor) 10 mg PO DAILY [facility] Last Admin: 08/23/18 09:27 Dose: 10 mg Diphenhydramine HCl (Benadryl) 25 mg PO Q6HP PRN PRN Reason: Allergic Symptoms Enoxaparin Sodium (Lovenox) 40 mg SQ DAILY [facility] Last Admin: 08/23/18 09:27 Dose: 40 mg Piperacillin Sod/Tazobactam (Sod 3.375 gm/ Dextrose) 50 mls @ 100 mls/hr IV Q6H [facility] Last Admin: 08/23/18 17:45 Dose: 100 mls/hr Infusion: 08/23/18 13:16 Dose: 100 mls/hr Admin: 08/23/18 12:46 Dose: 100 mls/hr Infusion: 08/23/18 06:30 Dose: 100 mls/hr Admin: 08/23/18 06:00 Dose: 100 mls/hr Infusion: 08/23/18 00:01 Dose: 100 mls/hr Admin: 08/22/18 23:31 Dose: 100 mls/hr Infusion: 08/22/18 17:30 Dose: 100 mls/hr Admin: 08/22/18 17:00 Dose: 100 mls/hr Vancomycin HCl 1,000 mg/ (Sodium Chloride) 250 mls @ 250 mls/hr IV Q12H [facility] Last Infusion: 08/23/18 10:47 Dose: 250 mls/hr Admin: 08/23/18 09:47 Dose: 250 mls/hr Infusion: 08/22/18 21:55 Dose: 250 mls/hr Admin: 08/22/18 20:55 Dose: 250 mls/hr Ondansetron HCl (Zofran) 4 mg IV Q4HP PRN PRN Reason: Nausea And Vomiting Promethazine HCl (Phenergan) 12.5 mg PO Q6HP PRN PRN Reason: Nausea And Vomiting Sertraline HCl (Zoloft) 25 mg PO DAILY [facility] Last Admin: 08/23/18 09:27 Dose: 25 mg Sodium Chloride (Saline Flush) 10 ml IV Q8 [facility] Last Admin: 08/23/18 15:13 Dose: Not Given Non-Admin Reason: Bag Still Infusing Admin: 08/23/18 05:50 Dose: 10 ml Admin: 08/22/18 20:19 Dose: Not Given Non-Admin Reason: Continuous IV Vancomycin HCl (Vancomycin Per Pharmacy) 1 order IV UD [facility] Assessment and Plan - Narrative A/P Narrative: A: 1. Cellulitis involving forehead, lt ear, left side of face and left eye ( preseptal): - given lack of pain on eye movements, orbital cellulitis is unlikely - unsure of exact etiology: insect bite, MRSA or Streptococcal infection might be responsible - signif improved with antibiotics - MRI brain and neck neg for any signif pathology except for mild periorbital inflammation, and mastoid air cell inflammation 2. No concerns for sepsis Recommendations: - Stop IV Vanc (with pharmacy assisted dosing) and IV Zosyn 3.375 gm q6 hr tonight - Since Linezolid cannot be used as pt is on Zoloft (due to concerns for Serotonin syn), will ask Pharmacy to arrange for single dose of Oritavancin 1200 mg. In addition, pt could be started on PO Ciprofloxacin 750 mg q24 for 5 days at discharge, with stop date of 08/28/18 - Outpt follow up with PCP after completion of antibiotic therapy. No ID follow up needed Macho Baumann MD Infectious diseases
[2018-08-24] MEDS: PIPERACILLIN SODIUM/TAZOBACTAM 3.375 GM in DEXTROSE 5% IN WATER 50 ML IV SCH ×3 (00:04→12:25)
[2018-08-24] MEDS: 0.9 % SODIUM CHLORIDE 10 ML SYRINGE IV SCH ×2 (05:59→12:25)
[2018-08-24 07:25] LABS: C-Reactive Protein 5.3 mg/dl (0.0-0.8)
[2018-08-24] MEDS ORDERED: WATER IV ONE (09:48)
[2018-08-24] MEDS ORDERED: DEXTROSE 5% IV ONE (09:48)
[2018-08-24] MEDS ORDERED: ORITAVANCIN DIPHOSPHATE IV ONE (09:48)
[2018-08-24] MEDS: ENOXAPARIN 40 MG/0.4 ML SYRINGE SQ SCH (10:24)
[2018-08-24] MEDS: ATORVASTATIN 20 MG TABLET PO SCH (10:25)
[2018-08-24] MEDS: VANCOMYCIN 1,000 MG in 0.9 % SODIUM CHLORIDE 250 ML IV SCH (10:25)
[2018-08-24] MEDS: SERTRALINE 50 MG TABLET PO SCH (10:25)
--- NOTE | 2018-08-24 17:07 | Infectious Disease Prog Note ---
Subjective Patient information: Note initiated : 08/24/18 at 5:04 pm Service Date, if different from initiated Date: [] Patient: Tamiko Joyce 62 y/o F admitted on 08/22/18 for Redness to forehead. Chief Complaint: [] Interval history: Patient doing well. Much improved with redness, swelling and tenderness almost gone. Patient still has some discomfort over her scalp Objective Objective Narrative: Alert oriented No redness, swelling, tenderness over forehead left cheek and external ear No thrush - Vital Signs Vital signs: Vital Signs Temp Pulse Resp BP Pulse Ox 08/24/18 14:35 36.6 C 71 16 132/76 96 08/24/18 12:00 36.6 C 58 L 18 120/63 93 08/24/18 08:00 16 08/24/18 07:49 36.3 C 59 L 18 99/55 93 08/24/18 04:00 36.6 C 55 L 18 90/50 95 08/24/18 00:00 36.9 C 65 18 91/53 94 08/23/18 20:00 37.0 C 67 20 110/56 95 Intake and Output 08/24/18 08/24/18 08/24/18 05:59 13:59 21:59 Intake Total 1000 / 1000 1070 / 1070 Output Total 150 / 150 Balance 850 / 850 1070 / 1070 Intake: IV 300 / 300 350 / 350 Zosyn 3.375 gm In Dextrose 5% 50 / 50 100 / 100 in Water 50 ml @ 100 mls/hr IV Q6H [facility] Rx#:[id number] Vancomycin 1,000 mg In Sodium 250 / 250 250 / 250 Chloride 0.9% 250 ml @ 250 mls/ hr IV Q12H [facility] Rx#:[id number] Oral 700 / 700 720 / 720 Output: Void Amount 150 / 150 Other: Meal Lunch Percent of Meal Consumed 100% Feeding Ability Independent Urine Appearance Clear Clear Urine Color Straw Bright Yellow Urine Odor Normal Normal Intake & Output: Intake & Output 08/24/18 08/24/18 08/24/18 05:59 13:59 21:59 Intake Total 1000 / 1000 1070 / 1070 Output Total 150 / 150 Balance 850 / 850 1070 / 1070 Intake: IV 300 / 300 350 / 350 Zosyn 3.375 gm In Dextrose 5% 50 / 50 100 / 100 in Water 50 ml @ 100 mls/hr IV Q6H [facility] Rx#:[id number] Vancomycin 1,000 mg In Sodium 250 / 250 250 / 250 Chloride 0.9% 250 ml @ 250 mls/ hr IV Q12H [facility] Rx#:[id number] Oral 700 / 700 720 / 720 Output: Void Amount 150 / 150 Other: Meal Lunch Percent of Meal Consumed 100% Feeding Ability Independent Urine Appearance Clear Clear Urine Color Straw Bright Yellow Urine Odor Normal Normal - Lab 08/23/18 04:20 08/23/18 04:20 Most recent lab results Calcium 8.8 mg/dl (8.6-10.4) 08/23/18 04:20 Phosphorus 2.9 mg/dL (2.7-4.5) 08/23/18 04:20 Magnesium 2.2 mg/dL (1.6-2.5) 08/23/18 04:20 Microbiology 08/22/18 11:51 Blood Blood Culture - Preliminary 08/22/18 11:58 Blood Blood Culture - Preliminary Assessment and Plan - Narrative A/P Narrative: A: 1. Cellulitis involving forehead, lt ear, left side of face and left eye ( preseptal): - given lack of pain on eye movements, orbital cellulitis is unlikely - unsure of exact etiology: insect bite, MRSA or Streptococcal infection might be responsible - signif improved with antibiotics - MRI brain and neck neg for any signif pathology except for mild periorbital inflammation, and mastoid air cell inflammation 2. No concerns for sepsis Recommendations: -Patient to get single dose of Oritavancin 1200 mg tomorrow in the ID clinic. Patient discharged on PO Ciprofloxacin 750 mg q24 for 5 days with stop date of 08/28/18 Macho Baumann MD Infectious diseases
== END 2018-08-24 14:35 | disposition home or self-care (01) | DRG 603 ==
LOC: ED 09:29 → MEDSUR 15:09
PROVIDERS: ADMIT Internal Medicine; ATTEND Internal Medicine
CPT/HCPCS: 80047; 85014; 99223; 99231; J1200; J1650; J2543; J3370; J7030; J7050; J7060; Q9967